=== PATIENT | female | born 1945 | race Caucasian/White ===

== ENCOUNTER 2019-08-14 13:50 | Emergency (ER) | payer OTHER, MEDICARE ==
[2019-08-14] MEDS ORDERED: DIVALPROEX SODIUM 250 MG TABLET.DR PO ONE (14:11)
[2019-08-14] MEDS ORDERED: BUSPIRONE HCL 10 MG TABLET PO ONE (14:12)
[2019-08-14] MEDS ORDERED: RISPERIDONE 0.25 MG TABLET PO ONE (14:12)
[2019-08-14] MEDS ORDERED: CLONIDINE 0.1 MG/24 HR PATCH.TDWK TD ONE (14:31)
--- NOTE | 2019-08-14 14:47 | PSYCHOLOGICAL NOTE ---
Psych Note - Psych Note Date seen by psych provider: 08/14/19 Time seen by psych provider: 02:40 Psych Note: Clinician attempted to speak with patient, however patient was uncooperative and repeatedly called clinician "a nut." Patient requested clinic "not come back." Medication recommendations per [facility]'s contracted psychologist Dr. Candido PORTER are as follows: ADD Haldol 1MG at 8AM and again at 4PM (IM) CHANGE Depakene 250MG, twice a day ADD Chlonadine 0.1MG 24hour patch
[2019-08-14 14:59] LABS: ABSOLUTE BASOPHILS # (AUTO) 0.1 10^3/uL (0.0-0.2); ABSOLUTE EOSINOPHILS # (AUTO) 0.2 10^3/uL (0.0-0.6); ABSOLUTE LYMPHOCYTES (AUTO) 1.2 10^3/uL (0.5-4.7); ABSOLUTE MONOCYTES (AUTO) 0.6 10^3/uL (0.1-1.4); ABSOLUTE NEUT (AUTO) 3.1 10^3/uL (1.7-8.2); BASOPHILS % (AUTO) 1.5 % (0-2); EOSINOPHILS % (AUTO) 3.6 % (0-6); HEMATOCRIT 41.5 % (36.0-47.0); HEMOGLOBIN 13.2 g/dL (12.0-15.5); MEAN CORPUSCULAR HEMOGLOBIN 31.7 pg (27.0-33.4); MEAN CORPUSCULAR HGB CONC 31.9 g/dL (32.0-36.0); MEAN CORPUSCULAR VOLUME 99 fl (80-97); MONOCYTES % (AUTO) 11.1 % (3-13); PLATELET COUNT 189 10^3/uL (150-450); RED BLOOD COUNT 4.18 10^6/uL (3.72-5.28); SEGMENTED NEUTROPHILS % (AUTO) 60.8 % (42-78); TOTAL CELLS COUNTED % (AUTO) 100 %
[2019-08-14 15:10] LABS: APPEARANCE,URINE SLIGHTLY-CLOUDY; BILIRUBIN,URINE NEGATIVE (NEGATIVE); CALCIUM OXALATE CRYSTALS,URINE FEW /HPF; COLOR,URINE DARK YELLOW; GLUCOSE, URINE NEGATIVE (NEGATIVE); KETONES,URINE NEGATIVE (NEGATIVE); LEUKOCYTE ESTERASE,URINE MODERATE (NEGATIVE); NITRITE,URINE NEGATIVE (NEGATIVE); PROTEIN,URINE 30 mg/dL (NEGATIVE); URINE SPECIFIC GRAVITY 1.021
[2019-08-14 15:18] LABS: ALBUMIN 4.1 g/dL (3.5-5.0); ALKALINE PHOSPHATASE 114 U/L (38-126); ANION GAP 10 (5-19); ASPARTATE AMINO TRANSFERASE 32 U/L (14-36); BILIRUBIN,DIRECT 0.2 mg/dL (0.0-0.4); BILIRUBIN,TOTAL 0.6 mg/dL (0.2-1.3); BLOOD UREA NITROGEN 9 mg/dL (7-20); CALCIUM 9.3 mg/dL (8.4-10.2); CARBON DIOXIDE 25 mmol/L (22-30); CHLORIDE 100 mmol/L (98-107); GLUCOSE 153 mg/dL (75-110); POTASSIUM 4.3 mmol/L (3.6-5.0); SALICYLATE 1.1 mg/dL (2.0-20.0); TOTAL PROTEIN 7.8 g/dL (6.3-8.2)
[2019-08-14 15:19] LABS: ACETAMINOPHEN < 10 ug/mL (10-30); ALCOHOL < 10 mg/dL (NONE DETECTED)
[2019-08-14 15:24] LABS: URINE AMPHETAMINES SCREEN NEGATIVE; URINE BARBITURATES SCREEN NEGATIVE; URINE BENZODIAZEPINES SCREEN NEGATIVE; URINE COCAINE SCREEN NEGATIVE; URINE MARIJUANA (THC) SCREEN NEGATIVE; URINE METHADONE SCREEN NEGATIVE; URINE PHENCYCLIDINE SCREEN NEGATIVE
[2019-08-14] MEDS ORDERED: HALOPERIDOL LACTATE INJ 5 MG/1 ML VIAL IM PRN (15:38)
[2019-08-14] MEDS ORDERED: DIVALPROEX SODIUM 125 MG CAP.SPRINK PO ONE (15:38)
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
--- NOTE | 2019-08-14 19:06 | EKG REPORT ---
SEVERITY:- ABNORMAL ECG - SINUS RHYTHM MULTIPLE ATRIAL PREMATURE COMPLEXES FIRST DEGREE AV BLOCK PROBABLE LEFT ATRIAL ABNORMALITY INCOMPLETE LEFT BUNDLE BRANCH BLOCK : Confirmed by: Joelle Bradley MD 14-Aug-2019 19:05:34
[2019-08-15] MEDS: BUSPIRONE HCL 10 MG TABLET PO SCH ×3 (06:25→18:15)
[2019-08-15] MEDS: DIVALPROEX SODIUM 250 MG TABLET.DR PO SCH ×3 (06:26→18:16)
[2019-08-15] MEDS ORDERED: RISPERIDONE 0.25 MG TABLET PO SCH (08:00)
--- NOTE | 2019-08-15 10:47 | ER Document Report ---
Doctor's Note Notes: 08/15/19 10:47 Patient is a 73-year-old female with a history of schizophrenia and dementia with medication noncompliance presents as a reported missing person from [place]. Multiple professional entities are involved in his case in [place] is trying to work on custody. Patient is noncompliant even with history and physi geo exam. She was up and walking around the room, but gave me the silent treatment when I tried to ask simple questions. I asked the patient if she is from [place], patient yelled at me and states that "she is here." Pt refusing to take any of her meds PO, but there is no IM option. Pt is also yelling at the staff. General: A&O. Heart: RRR Lungs: CTAB Psych: Irritable A/P: We will give zyprexa 10mg IM and try to give her the PO meds once she calms down again. Continue monitoring and med rec's per MH. Waiting on further rec's from MH team. Normal diet
[2019-08-15] MEDS: OLANZAPINE INJ/PF 10 MG SDV IM ONE ×4 (11:05→11:18)
--- NOTE | 2019-08-15 20:42 | PSYCHOLOGICAL NOTE ---
Psych Note - Psych Note Date seen by psych provider: 08/15/19 Time seen by psych provider: 11:10 Psych Note: Patient refused to engage with clinician. Per report from nursing staff, patient is generally non compliant and argumentative with staff.
[2019-08-16] MEDS: BUSPIRONE HCL 10 MG TABLET PO SCH ×2 (11:00→18:31)
[2019-08-16] MEDS: DIVALPROEX SODIUM 250 MG TABLET.DR PO SCH ×2 (11:00→18:32)
--- NOTE | 2019-08-16 11:31 | ER Document Report ---
Doctor's Note Notes: 08/16/19 11:29 Rounding on patient she has no new concerns or complaints. She is still refusing to take PO medications. She is otherwise eating/drinking and using the restroom w/o any difficulties. Denies [place], fever, CP, SOB, dyspnea, abd pain, n/v/d, dysuria. General: A&O. Heart: RRR Lungs: CTAB Psych: still irritable A/P: Asked MH to give new med recs that can be IM as she will not take PO. Continue monitoring Waiting on further rec's from MH team. Normal diet
[2019-08-16] MEDS: CLONIDINE 0.1 MG/24 HR PATCH.TDWK TD SCH (13:47)
--- NOTE | 2019-08-16 14:48 | PSYCHOLOGICAL NOTE ---
Psych Note - Psych Note Date seen by psych provider: 08/16/19 Time seen by psych provider: 07:15 Psych Note: Chart review conducted at 07:05. Patient was sitting in chair next to the door. Clinician stood in the doorway (as to present in a nonthreatening stance). Isael spangler attempted to engage patient in polite conversation (e.g. "How are you" and "How did you sleep last night"). Patient responded by yelling, "get to the point, today." Clinician responded by stating, "I did not raise my voice at you." Patient stood up and stated something to the effect of let's get this over with and pressed the security button in the room. Clinician was instructed by nursing staff to cancel security page. Clinician returned to doorway and attempted to engage patient, again. Patient, again, pressed button for security. Clinician canceled security page. Clinician informed patient "I'll be back to check on you," to which patient responded, "don't." Per nursing staff, when clinician was in room across the mendez from patient, patient was "flipping the bird" and gesturing in the direction across the mendez. Medication recommendations per [facility]'s contracted psychologist Dr. Candido PORTER are as follows: Continue Haldol 1MG at 8AM and again at 4PM (IM) Continue Depakene 250MG, twice a day Continue Chlonadine 0.1MG 24hour patch NO BENZOS NO ANTIPSYCHOTICS Impression/Plan: Patient is not cleared from acute psychiatric services. Patient does meet IVC criteria per [place] GS 122C. Due to acuteness of patients chronic neurovascular disease, patient is unable to adequately assess patients current level of functioning. Patient remains to be uncooperative and her thought process is disorganized. Medication recommendations have been provided. Continue to reevaluate. Cristina Mckenna at [facility] will be contacted for a follow up. Appropriate placement will try to be obtained. Dr. Gil was consulted on the care and management of this patient; attending physician is in agreement with recommendations and disposition.
[2019-08-16] MEDS ORDERED: HALOPERIDOL LACTATE INJ 5 MG/1 ML VIAL IM SCH (16:38)
[2019-08-16] MEDS ORDERED: HALOPERIDOL LACTATE INJ 5 MG/1 ML VIAL IM ONE (17:00)
[2019-08-17] MEDS: HALOPERIDOL LACTATE INJ 5 MG/1 ML VIAL IM SCH ×2 (08:18→15:41)
[2019-08-17] MEDS: BUSPIRONE HCL 10 MG TABLET PO SCH ×3 (10:56→18:03)
[2019-08-17] MEDS: CLONIDINE 0.1 MG/24 HR PATCH.TDWK TD SCH (10:56)
[2019-08-17] MEDS: DIVALPROEX SODIUM 250 MG TABLET.DR PO SCH ×3 (10:56→18:02)
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
[2019-08-17] MEDS ORDERED: LIDOCAINE 1% INJ-PF (10 MG/ML) 30 ML SDV INJ ONE (17:22)
[2019-08-17] MEDS ORDERED: CEFTRIAXONE INJ 1000 MG VIAL IM ONE (17:22)
[2019-08-18] MEDS: HALOPERIDOL LACTATE INJ 5 MG/1 ML VIAL IM SCH ×2 (07:44→15:14)
[2019-08-18] MEDS ORDERED: VALPROATE SODIUM SYRUP 250 MG/5 ML UDCUP PO ONE (10:14)
[2019-08-18] MEDS: DIVALPROEX SODIUM 250 MG TABLET.DR PO SCH ×2 (10:35→18:14)
[2019-08-18] MEDS ORDERED: CEPHALEXIN 500 MG CAPSULE PO SCH (10:40)
[2019-08-18] MEDS: BUSPIRONE HCL 10 MG TABLET PO SCH ×2 (10:44→18:14)
[2019-08-18] MEDS: CLONIDINE 0.1 MG/24 HR PATCH.TDWK TD SCH (10:45)
--- NOTE | 2019-08-18 10:54 | ER Document Report ---
Doctor's Note Notes: 08/18/19 10:51 I rounded on this 73yo female. Patient has no SI or HI. She has been eating and drinking without difficulty. She is urinating normally and having normal bowel moments. She has no other concerns or complaints. No acute changes. Pt is blunt and does not like to be interrupted which has been her baseline since I have been rounding on her. She did receive rocephin yesterday IM. UC has been ordered. Denies any headache, fever, neck pain, URI, sore throat, chest pain, palpitations, syncope, cough, shortness of breath, wheeze, dyspnea, abdominal pain, nausea/vomiting/diarrhea, urinary retention, dysuria, hematuria, or rash. General: still blunt and irritable, but no distress. Appears well. Heart: RRR Lungs: CTAB Psych: baseline, irritable A/P: Continue monitoring and med rec's per . Waiting on further rec's from MH team. Normal diet
[2019-08-18] MEDS ORDERED: LIDOCAINE 1% INJ-PF (10 MG/ML) 30 ML SDV INJ ONE (18:23)
[2019-08-18] MEDS ORDERED: CEFTRIAXONE INJ 1000 MG VIAL IM ONE (18:23)
[2019-08-19] MEDS: HALOPERIDOL LACTATE INJ 5 MG/1 ML VIAL IM SCH ×2 (09:04→15:20)
--- NOTE | 2019-08-19 10:25 | ER Document Report ---
Doctor's Note Notes: 08/19/19 10:22 I rounded on this 73yo female. Pt is at baseline from my previous rounding. Patient has no SI or HI. She has been eating and drinking without difficulty. She is urinating normally and having normal bowel moments. She has no other concerns or complaints. No acute changes. Pt is becoming more familiar with me so she does not interrupt as often. She did receive rocephin yesterday IM. UC grew veridian strep, waiting to see if we get sensitivity otherwise as pt will not take PO meds. Denies any headache, fever, neck pain, URI, sore throat, chest pain, palpitations, syncope, cough, shortness of breath, wheeze, dyspnea, abdominal pain, nausea/vomiting/diarrhea, urinary retention, dysuria, hematuria, or rash. General: no distress. Appears well. Heart: RRR Lungs: CTAB Psych: baseline, tangential speech A/P: Continue monitoring and rec's per MH. Rocephin IM daily for now until sensitivity report available. Recheck UA tomorrow. Normal diet
[2019-08-19] MEDS: DIVALPROEX SODIUM 250 MG TABLET.DR PO SCH (10:39)
[2019-08-19] MEDS: CLONIDINE 0.1 MG/24 HR PATCH.TDWK TD SCH (10:52)
[2019-08-19] MEDS: VALPROATE SODIUM SYRUP 250 MG/5 ML UDCUP PO SCH ×2 (10:52→17:41)
[2019-08-19] MEDS: BUSPIRONE HCL 10 MG TABLET PO SCH ×2 (10:52→17:43)
[2019-08-20] MEDS: HALOPERIDOL LACTATE INJ 5 MG/1 ML VIAL IM SCH ×2 (07:43→13:16)
[2019-08-20] MEDS: CLONIDINE 0.1 MG/24 HR PATCH.TDWK TD SCH (09:27)
[2019-08-20] MEDS: VALPROATE SODIUM SYRUP 250 MG/5 ML UDCUP PO SCH ×2 (09:27→17:14)
[2019-08-20] MEDS: BUSPIRONE HCL 10 MG TABLET PO SCH ×2 (09:28→17:18)
--- NOTE | 2019-08-20 11:42 | ER Document Report ---
Doctor's Note Notes: 08/20/19 11:40 08/20/19 11:37 73-year-old female is brought by police who is considered a missing person in [place] presents for abnormal behavior. Patient's vital signs and previous diagnostic evaluation reviewed. Reviewed mental health notes, nurse's notes and previous providers notes. VSS. Patient appears to be agitated. Patient did receive 1 g Rocephin yesterday for UTI. will recheck UA again today. pt is refusing po meds at this time. General: A&Ox3. Answers questions appropriately. Heart: RRR Lungs: CTAB Psych: Flat affect, agitated A/P: Continue monitoring and rec's per MH. Normal diet Mental health would like to send home today
[2019-08-20 12:21] LABS: APPEARANCE,URINE CLEAR; BILIRUBIN,URINE NEGATIVE (NEGATIVE); COLOR,URINE YELLOW; GLUCOSE, URINE NEGATIVE (NEGATIVE); KETONES,URINE NEGATIVE (NEGATIVE); LEUKOCYTE ESTERASE,URINE SMALL (NEGATIVE); NITRITE,URINE NEGATIVE (NEGATIVE); PROTEIN,URINE NEGATIVE (NEGATIVE); URINE SPECIFIC GRAVITY 1.018; UROBILINOGEN,URINE NEGATIVE mg/dL (<2.0)
[2019-08-21] MEDS: HALOPERIDOL LACTATE INJ 5 MG/1 ML VIAL IM SCH ×2 (08:26→15:59)
[2019-08-21] MEDS: CLONIDINE 0.1 MG/24 HR PATCH.TDWK TD SCH (10:43)
[2019-08-21] MEDS: BUSPIRONE HCL 10 MG TABLET PO SCH ×2 (10:44→17:21)
[2019-08-21] MEDS: VALPROATE SODIUM SYRUP 250 MG/5 ML UDCUP PO SCH ×2 (10:48→17:21)
--- NOTE | 2019-08-21 12:15 | ER Document Report ---
Doctor's Note Notes: 08/21/19 12:13 I rounded again on this 73yo female. Pt is at baseline from my previous rounding. Patient has no SI or HI. She has been eating and drinking without difficulty. She is urinating normally and having normal bowel moments. She has no other concerns or complaints. No acute changes. Repeat UA was unremarkable. Denies any headache, fever, neck pain, URI, sore throat, chest pain, palpitations, syncope, cough, shortness of breath, wheeze, dyspnea, abdominal pain, nausea/vomiting/diarrhea, urinary retention, dysuria, hematuria, or rash. General: no distress. Appears well. Heart: RRR Lungs: CTAB Abd: soft, nontender, no CVA tenderness Psych: baseline, tangential speech A/P: Continue monitoring and rec's per . Pt may be getting discharged tomorrow back to [place].
[2019-08-22] MEDS: HALOPERIDOL LACTATE INJ 5 MG/1 ML VIAL IM SCH (08:40)
--- NOTE | 2019-08-22 08:45 | PSYCHOLOGICAL NOTE ---
Psych Note - Psych Note Date seen by psych provider: 08/22/19 Time seen by psych provider: 07:55 Psych Note: Reason for Consult: IVC Check in conducted with patient Patient's mood is euthymic with congruent affect as evidenced by smiling and engaging with clinician. She disclosed she has no interest in returning to [place] and thought about staying in the local area. She disclosed that it is hard to "adjust" to the local area and reports she has been staying in a hotel since arriving. She discusses the decision to stay in a hotel rather then renting an apartment because she sees it as easier; financially and no need for daily upkeep of yard and home. She continues to discuss that when you run to the apartment you have to have a down payment and pay electric and water and all the other bills. She reports the best is a hotel with a kitchenette. Patient reports that she has a debit card and is able to financially care for herself. She does identify needing to explore the local area to find where grocery stores and other resources are. Medication recommendations per [facility]'s contracted psychiatrist Dr. Candido PORTER are as follows: Depakote 250 mg twice daily BuSpar 5 mg twice daily Schizophrenia per history provided by [place] Impression\\plan: Patient is cleared from acute psychiatric services; her IVC was rescinded 08/20/2019. Patient was previously living in [place] and receiving treatment. [place] reported that the patient is unable to care for herself. This is an direct conflict to evidence of the patient leaving [place] traveling to [place] first and then to [place] independently which included obtaining food and jail with continued personal safety (ie no reports of the patient being a victim of assault or financial fraud). Patient did present initially off psychiatric medications and with a urinary tract infection. In the geriatric and severe chronic mental illness populations, urinary tract infection can cause acute change in mental status; this can range from agitation, aggression, restlessness to withdrawing, confusion, hallucinations or delusions. Once the patient was treated for her urinary tract infection and restarted on her psychiatric medications, she engage pleasantly and appropriately with clinician. Patient was able to discuss plan of care which included housing options, reports financial stability, and local resources. Patient is retired and will be provided the local [facility] contact information in addition to economic resource "Street sheet" and area providers which includes mobile crisis contact information. Dr. Gil was consulted to care management of this patient; attending physicians in agreement with recommendations and disposition.
[2019-08-22] MEDS: VALPROATE SODIUM SYRUP 250 MG/5 ML UDCUP PO SCH (09:54)
[2019-08-22] MEDS: BUSPIRONE HCL 10 MG TABLET PO SCH (09:54)
[2019-08-22] MEDS: CLONIDINE 0.1 MG/24 HR PATCH.TDWK TD SCH (09:55)
--- NOTE | 2019-08-22 10:40 | RADIOLOGY REPORT (SQ) ---
EXAM DESCRIPTION: CHEST SINGLE VIEW COMPLETED DATE/TIME: 08/22/2019 10:20 am REASON FOR STUDY: cough COMPARISON: None. NUMBER OF VIEWS: One view. TECHNIQUE: Single frontal radiographic view of the chest acquired. LIMITATIONS: None. FINDINGS: LUNGS AND PLEURA: No opacities, masses or pneumothorax. No pleural effusion. MEDIASTINUM AND HILAR STRUCTURES: No masses. Contour normal. HEART AND VASCULAR STRUCTURES: Heart normal in size. Normal vasculature. BONES: No acute findings. HARDWARE: None in the chest. OTHER: No other significant finding. IMPRESSION: NO SIGNIFICANT RADIOGRAPHIC FINDING IN THE CHEST. TECHNICAL DOCUMENTATION: JOB ID: [id number] [employer]- All Rights Reserved Reading location - IP/workstation name: [email or web address]
[2019-08-22 13:17] VITALS: BP 131/75
== END 2019-08-22 13:24 | disposition home or self-care (01) ==
LOC: ER 13:50
DX: F20.9 Schizophrenia, unspecified (principal); N39.0 Urinary tract infection, site not specified; B95.4 Other streptococcus as the cause of diseases classified elsewhere; R45.4 Irritability and anger; F17.200 Nicotine dependence, unspecified, uncomplicated; Z91.14 Patient's other noncompliance with medication regimen
CPT/HCPCS: 93005; 96376; 99285; 96372; 96374; 36415; 87086; 80307 ×4; 85025; 80053; 81001; 71045; 93010; J1630 ×7; J3490 ×10; J0696 ×2